=== PATIENT | male | born 1965 | race Two or more races ===

== ENCOUNTER 2018-06-12 06:50 | Day surgery (SDC) | payer OTHER ==
[~2018-06-12] VITALS: Ht 172.7 cm; Wt 100.7 kg
[2018-06-12] MEDS ORDERED: VAS10 PO (07:52)
[2018-06-12] MEDS ORDERED: LIDOCAINE 2% 100 MG/5 ML UJET TP ONE (08:17)
[2018-06-12] MEDS ORDERED: fentaNYL 0.05 MG/ML VIAL ONE (08:17)
[2018-06-12] MEDS ORDERED: MIDAZOLAM 2 MG/2 ML VIAL ONE ×2 (08:17→08:18)
== END 2018-06-12 09:40 | disposition home or self-care (01) ==
LOC: MMU 06:50 → MDS 06:50
PROVIDERS: ATTEND Internal Medicine Gastroenterology
DX: Z12.11 Encounter for screening for malignant neoplasm of colon (principal); D12.3 Benign neoplasm of transverse colon; K64.4 Residual hemorrhoidal skin tags; I10 Essential (primary) hypertension; E66.9 Obesity, unspecified; Z72.89 Other problems related to lifestyle; F17.210 Nicotine dependence, cigarettes, uncomplicated; Z68.34 Body mass index [BMI] 34.0-34.9, adult
CPT/HCPCS: 45385; J3010; J2250